=== PATIENT | female | born 1960 | race Caucasian/White ===

== ENCOUNTER 2019-04-14 18:03 | Emergency (ER) | payer OTHER ==
[~2019-04-14] VITALS: Ht 170.2 cm; Wt 82.6 kg
--- NOTE | 2019-04-14 18:20 | NUR ---
Patient to ER bed 03 to gown for evaluation. Side rails up.
--- NOTE | 2019-04-14 18:22 | NUR ---
ER Dr. Seymour at bedside examining patient.
[2019-04-14 18:23] VITALS: BP_SYST 162
--- NOTE | 2019-04-14 18:27 | NUR ---
Pt AAOx4 presents to ED via BLS c/o 05/11 bilateral knee pain s/p trip and fall while shopping. Denies KO/N/V/D/blurred vision. No other injuries/complaints per pt/noted. Will continue to monitor.
--- NOTE | 2019-04-14 18:42 | NUR ---
X-ray at bedside for films, will continue to observe and assess.
--- NOTE | 2019-04-14 19:30 | NUR ---
Patient resting quietly in no acute distress, vital signs stable. Awaiting dispo
--- NOTE | 2019-04-14 19:50 | NUR ---
KING wrap applied to right knee. Palpable pulse noted. Capillary refill < 3. seconds. Patient has ability to move lower extremity and digits. Has sensation present to affected site. Skin color within normal limits. Applied for pain management control and immobilization.
--- NOTE | 2019-04-14 20:00 | NUR ---
Patient given written and verbal discharge instructions and verbalizes understanding. ER MD discussed with patient the results and treatment provided. Patient in stable condition. ID arm band removed. Rx of Naprosyn given. Patient educated on pain management and to follow up with PMD. Pain Scale 0. Opportunity for questions provided and answered. Medication side effect fact sheet provided. Patient left ER in no acute distress.
--- NOTE | 2019-04-14 20:03 | NUR ---
Note karyone in EDM - 04/14/19 at 2027 by [email or web address] KING wrap applied to right knee. Palpable pulse noted. Capillary refill < 3. seconds. Patient has ability to move lower extremity and digits. Has sensation present to affected site. Skin color within normal limits. Applied for pain management control and immobilization.
== END 2019-04-14 20:00 | disposition home or self-care (01) ==
LOC: SED 18:03
DX: S83.91XA Sprain of unspecified site of right knee, initial encounter (principal); S83.92XA Sprain of unspecified site of left knee, initial encounter; R03.0 Elevated blood-pressure reading, without diagnosis of hypertension; W01.0XXA Fall on same level from slipping, tripping and stumbling without subsequent striking against object, initial encounter; Y93.89 Activity, other specified; Y92.89 Other specified places as the place of occurrence of the external cause; Y99.8 Other external cause status
CPT/HCPCS: 99283